=== PATIENT | male | born 1990 | race Caucasian/White ===

== ENCOUNTER 2018-11-03 19:08 | Emergency (ER) | payer OTHER ==
[~2018-11-03] VITALS: Ht 185.4 cm; Wt 66.7 kg
--- NOTE | 2018-11-03 19:15 | NUR ---
PT BIBSELF COMPLAINING OF NAUSEA AND VOMITTING X1 DAY. PT DENIES SOB, CHEST PAIN, ABDOMINAL PAIN, DIARRHEA. PT IS AAOX4. RESPIRATIONS EVEN AND UNLABORED. SKIN WARM AND INTACT. VITAL SIGNS STABLE. NO ACUTE DISTRESS NOTED AT THIS TIME. PT AMBULATORY TO ER BED 11
--- NOTE | 2018-11-03 19:20 | NUR ---
ER PA AT BEDSIDE FOR EVALUATION
[2018-11-03] MEDS ORDERED: IV NS 0.9% 1,000 ML BAG IV ONE (19:30)
--- NOTE | 2018-11-03 19:40 | NUR ---
ORDER DEPARTMENT SUPERVISOR AT BEDSIDE FOR BLOOD DRAW. PT UNABLE TO PROVIDE URINE SAMPLE AT THIS TIME. AWARE.
[2018-11-03 19:47] LABS: BASOPHILS # (AUTO) 0.1 /CMM (0.0-0.2); BASOPHILS % (AUTO) 0.6 % (0.0-2.0); EOSINOPHILS % (AUTO) 5.6 % (0.0-6.0); HEMATOCRIT 48 % (39-51); HEMOGLOBIN 16.6 g/dL (13.5-17.5); LYMPHOCYTES # (AUTO) 1.7 /CMM (0.8-4.8); LYMPHOCYTES % (AUTO) 17.3 % (20.0-44.0); MEAN CORPUSCULAR HGB CONC 34 g/dl (31.0-36.0); MEAN CORPUSCULAR VOLUME 95 fL (80-96); MONOCYTES # (AUTO) 0.6 /CMM (0.1-1.30); MONOCYTES % (AUTO) 6.6 % (2.0-12.0); NEUTROPHILS # (AUTO) 6.7 /CMM (1.8-8.9); NEUTROPHILS % (AUTO) 69.9 % (43.0-81.0); PLATELET COUNT (AUTO) 283 /CMM (150-450); RED BLOOD CELL COUNT(AUTO) 5.08 MIL/uL (4.5-6.0); WHITE BLOOD COUNT (AUTO) 9.6 K/uL (4.3-11.0)
[2018-11-03 19:59] LABS: CALCIUM, SERUM 8.8 mg/dL (8.5-10.1); POTASSIUM 4.2 mmol/L (3.5-5.1)
[2018-11-03 20:05] LABS: ALBUMIN 4.3 g/dL (3.4-5.0); BILIRUBIN,DIRECT 0.2 mg/dL (0.0-0.2); BILIRUBIN,TOTAL 0.9 mg/dL (0.2-1.0); TOTAL PROTEIN, SERUM 7.1 g/dL (6.4-8.2)
--- NOTE | 2018-11-03 20:10 | NUR ---
PT STILL UNABLE TO PROVIDE URINE SAMPLE. ER PA AWARE
[2018-11-03] MEDS ORDERED: ONDANSETRON 4 MG TAB.RAPDIS ONE (20:42)
--- NOTE | 2018-11-03 20:52 | NUR ---
Patient discharged to home in stable condition. Written and verbal after care instructions given. Patient verbalizes understanding of instruction. IV removed. Catheter intact and site benign. Pressure and 4x4 applied to site. No bleeding noted. Pt ambulatory with a steady gait. Pt instructed not to drive
[2018-11-03 20:53] VITALS: BP 122/81
[2018-11-03] MEDS ORDERED: ONDANSETRON 4 MG TAB.RAPDIS SL ONE (21:00)
== END 2018-11-03 20:54 | disposition home or self-care (01) ==
LOC: ER 19:12
DX: R09.89 Other specified symptoms and signs involving the circulatory and respiratory systems (principal); R11.10 Vomiting, unspecified
CPT/HCPCS: 36415; 71045; 80048; 80076; 83690; 85025; 96360; 99284; A4606; J7030; Q0162; Z7610